=== PATIENT | male | born 1960 | race Caucasian/White ===

== ENCOUNTER 2018-08-13 05:42 | Inpatient (IN) | payer OTHER ==
--- NOTE | 2018-07-31 17:31 | GHP ---
[f rep st] PREOP HISTORY AND PHYSICAL He will be an a.m. admission for surgery on Monday, August 13, 2018. PROBLEM: Right hip severe degenerative arthritis. HISTORY OF PRESENT ILLNESS: The patient is a 57-year-old man admitted for a right hip [place] hip resurfacing arthroplasty. He has had intermittent problems for the past 5 years. He is now having daily pain and occasional night pain. Walking is painful. His activities are very limited. He is using ibuprofen. He has trouble putting on his shoes and socks on the right side. He has tried physical therapy, which is not helpful. He has had 2 cortisone injections, which provided brief benefit. He has also had some low back pain and SI joint problems. He has seen Dr. Fletcher at [facility] and Dr. Morgan Anderson in [place]. He is not a candidate for hip arthroscopy. He is admitted for a right hip [place] hip resurfacing arthroplasty. PAST MEDICAL HISTORY: He has been treated for skin cancer, which was not melanoma. No history of heart disease, stents, DVT, hepatitis, MRSA staph infections, sleep apnea, or bleeding problems. CURRENT MEDICATIONS: Advil. DRUG ALLERGIES: None. METAL ALLERGY: None. LATEX ALLERGY: None. SOCIAL HISTORY: The patient is . He does not smoke cigarettes and occasionally drinks alcohol. He works as chief of staff. FAMILY HISTORY: Positive for heart disease. PHYSICAL EXAMINATION: VITAL SIGNS: Height 6 feet 3 inches, weight 225 pounds, BMI 28.1. EYES: Conjunctivae and sclerae are clear. Pupils are round and reactive. MOUTH: Good oral hygiene. No loose teeth. CHEST: Clear. HEART: Regular rhythm. No murmurs. EXTREMITIES: Pertinent findings are limited to his right hip. He has full hip extension and 100 degrees of flexion. External rotation 30 degrees. Internal rotation 0 degrees. Abduction 30 degrees. He has well-developed thigh and buttocks musculature. IMAGING: His films show degenerative arthritis of his right hip. IMPRESSION ON ADMISSION: Right hip degenerative arthritis. He is prepared for a right total hip [place] hip resurfacing arthroplasty. The surgery has been described to him, including the risks, complications, expectations and recovery time. I have talked to him about the risk of femoral neck fracture, dislocation, infection and sciatic nerve injury. We have discussed, on 2 occasions, the issue of elevated metal ions in the blood and in the soft tissues around the hip joint. He understands that he is very young for any type of hip arthroplasty and may require revision surgery in his lifetime. All his questions have been answered and he consents to surgery. He does not have a primary care doctor. /[id number]/MODL MTDD
[~2018-08-13 05:42] MED LIST: TRANEXAMIC ACID 2,000 MG in NS 100 ML IV ONE
[2018-08-13] MEDS ORDERED: TRANEXAMIC ACID 3,000 MG in NS (SYRINGE) 50 ML IRR ONE (06:00)
[2018-08-13] MEDS ORDERED: TRANEXAMIC ACID 1,000 MG in NS 100 ML IV ONE (06:00)
[2018-08-13] MEDS ORDERED: POVIDONE-IODINE 20 ML in SODIUM CL IRRIG SOLUTION 500 ML IRR ONE (06:00)
[2018-08-13] MEDS ORDERED: ROPIVACAINE 0.2% 80 MG, EPINEPHrine 0.2 MG, KETOROLAC TROMETHAMINE 30 MG in SYRINGE 0 ML IU ONE (06:00)
[2018-08-13] MEDS ORDERED: ceFAZolin 2 GM/DEXTROSE 100 ML IV ONE (06:06)
[2018-08-13] MEDS ORDERED: GABAPENTIN 300 MG CAP PO ONE (06:06)
[2018-08-13] MEDS ORDERED: ONDANSETRON 4 MG/2 ML VIAL IVP ONE (06:06)
[2018-08-13] MEDS ORDERED: DEXAMETHASONE 4 MG/ML VIAL IVP ONE (06:06)
[2018-08-13] MEDS ORDERED: ACETAMINOPHEN 325 MG TAB PO ONE (06:06)
[2018-08-13] MEDS ORDERED: FAMOTIDINE 20 MG TAB PO ONE (06:06)
[2018-08-13] MEDS ORDERED: LR 1,000 ML IV ONE (06:10)
[2018-08-13] MEDS ORDERED: TRANEXAMIC ACID 3,000 MG/50 ML BAG IRR ONE (06:45)
[2018-08-13] MEDS ORDERED: ceFAZolin 1 GM/5 ML SYR ONE (06:45)
[2018-08-13] MEDS ORDERED: MIDAZOLAM 2 MG/2 ML VIAL IVP ONE (06:50)
[2018-08-13] MEDS ORDERED: fentaNYL 100 MCG/2 ML INJ IVP PRN (06:51)
[2018-08-13] MEDS ORDERED: ONDANSETRON 4 MG/2 ML VIAL IVP PRN ×2 (06:51→09:32)
[2018-08-13] MEDS ORDERED: NALOXONE HCL 0.4 MG/ML INJ IVP PRN (06:51)
[2018-08-13] MEDS ORDERED: PROMETHAZINE HCL 25 MG/ML INJ IVP PRN ×2 (06:51→09:32)
[2018-08-13] MEDS ORDERED: ALBUTEROL 3 ML DEYVIAL IH PRN (06:51)
[2018-08-13] MEDS ORDERED: HYDROmorphONE/DILAUDID 2 MG/ML INJ IVP PRN (06:51)
[2018-08-13] MEDS ORDERED: NS 500 ML IV PRN ×2 (06:51→09:32)
--- NOTE | 2018-08-13 06:51 | PDANEPAE ---
ANE History of Present Illness here for R hip re-surfacing ANE Past Medical History - Cardiovascular History Hx Hypertension: No Hx Arrhythmias: No Hx Chest Pain: No Hx Coronary Artery / Peripheral Vascular Disease: No Hx CHF / Valvular Disease: No Hx Palpitations: No Cardiovascular History Comment: MILD MURMUR IN PAST - Pulmonary History Hx COPD: No Hx Asthma/Reactive Airway Disease: No Hx Recent Upper Respiratory Infection: No Hx Oxygen in Use at Home: No Hx Sleep Apnea: No Sleep Apnea Screening Result - Last Documented: Negative - Neurologic History Hx Cerebrovascular Accident: No Hx Seizures: No Hx Dementia: No Neurologic History Comment: OCCAS HEADACHES - Endocrine History Hx Diabetes: No - Renal History Hx Renal Disorders: No - Liver History Hx Hepatic Disorders: No - Neurological & Psychiatric Hx Hx Neurological and Psychiatric Disorders: No - Cancer History Hx Cancer: Yes Cancer History Comment: BASAL & SQUAMOUS CELL REMOVED - Congenital Disorder History Hx Congenital Disorders: No - GI History Hx Gastrointestinal Disorders: No - Other Health History Other Health History: DRY SKIN - Chronic Pain History Chronic Pain: Yes (R HIP & LOW BACK) - Surgical History Prior Surgeries: SKIN CA REMOVED. KNEE SCOPE R. HERNIA. TONSILLECTOMY ANE Review of Systems Review of Systems: - Exercise capacity Exercise capacity: >=4 METS METS (RN): 4 METS ANE Patient History - Allergies Allergies/Adverse Reactions: No Known Allergies Allergy (Unverified 07/30/18 11:13) - Home Medications Home medications: home medication list seen and reviewed Home Medications: Advil 07/30/18 [Last Taken 1 Week Ago ~08/06/18] Excedrin Tablet (*) 07/30/18 [Last Taken 1 Week Ago ~08/06/18] Tylenol 08/13/18 [Last Taken 08/09/18] - NPO status NPO Status: no food or drink >8 hours NPO Since - Liquids (Date): 08/13/18 NPO Since - Liquids (Time): 02:00 NPO Since - Solids (Date): 08/12/18 NPO Since - Solids (Time): 21:00 - Anes Hx Anes Hx: no prior problems - Smoking Hx Smoking Status: Never smoked ANE Labs/Vital Signs - Vital Signs Vital Signs: reviewed preoperatively; see RN documention for details Blood Pressure: 137/100 Heart Rate: 68 Respiratory Rate: 18 O2 Sat (%): 94 Height: 190.5 cm Weight: 102.058 kg ANE Physical Exam - Airway Neck exam: FROM Mallampati Score: Class 1 - Pulmonary Pulmonary: no respiratory distress - Cardiovascular Cardiovascular: regular rate and rhythym - ASA Status ASA Status: II ANE Anesthesia Plan Anesthesia Plan: MAC, spinal
[2018-08-13] MEDS ORDERED: MIDAZOLAM 2 MG/2 ML VIAL ONE (06:54)
[2018-08-13] MEDS ORDERED: BUPIVACAINE 0.5% 30 ML SDV ONE (06:54)
[2018-08-13] MEDS ORDERED: PROPOFOL/EMULSION 500 MG/50 ML BOTTLE IV ONE ×3 (07:00→08:31)
[2018-08-13] MEDS ORDERED: fentaNYL 100 MCG/2 ML INJ ONE (07:02)
--- NOTE | 2018-08-13 07:03 | PDHPUP ---
History & Physical Update H&P update statement: This history and physical update is based on an assessment of the patient which was completed after admission or registration (within 24 hours), but prior to the surgery/procedure. H&P update: H&P reviewed & patient examined
[2018-08-13] MEDS ORDERED: PHENYLEPHRINE HCL 100 MCG/ML SYR ONE (08:04)
[2018-08-13] MEDS ORDERED: ePHEDrine SULFATE 25 MG/5 ML SYR ONE (08:17)
--- NOTE | 2018-08-13 09:24 | POSTOPPROG ---
Post Op Note Date of Operation: 08/13/18 Surgeon: Richard Sebastian Foreign Language Interpreter: Zenon Anesthesiologist: Dr. Tom Siu Anesthesia: IV Sedation, Spinal Post-op Diagnosis: Right hip severe degenerative arthritis. Procedure: Right hip [place] hip resurfacing arthroplasty. Inf/Abcess present in the surg proc area at time of surgery?: No EBL: 100-500
[2018-08-13] MEDS ORDERED: MAGNESIUM HYDROXIDE 30 ML UDCUP PO PRN (09:32)
[2018-08-13] MEDS ORDERED: CYCLOBENZAPRINE 10 MG TAB PO PRN (09:32)
[2018-08-13] MEDS ORDERED: DIPHENOXYLATE/ATROPINE LOMOTIL 1 TAB PO PRN (09:32)
[2018-08-13] MEDS ORDERED: POLYETHYLENE GLYCOL 3350 17 GM PKT PO PRN (09:32)
[2018-08-13] MEDS ORDERED: oxyCODONE IR 5 MG TAB PO PRN (09:32)
[2018-08-13] MEDS ORDERED: LACTULOSE 20 GM/30 ML UDCUP PO PRN (09:32)
[2018-08-13] MEDS ORDERED: PROMETHAZINE HCL 25 MG SUPPR PR PRN (09:32)
[2018-08-13] MEDS ORDERED: BISACODYL 10 MG SUPP PR PRN (09:32)
[2018-08-13] MEDS ORDERED: traMADol 50 MG TAB PO PRN (09:32)
[2018-08-13] MEDS ORDERED: TEMAZEPAM 15 MG CAP PO PRN (09:32)
[2018-08-13] MEDS ORDERED: METOCLOPRAMIDE 10 MG/2 ML VIAL IVP PRN (09:32)
[2018-08-13] MEDS ORDERED: ONDANSETRON DISINTEGRATING 4 MG TAB PO PRN (09:32)
[2018-08-13] MEDS ORDERED: diphenhydrAMINE 25 MG CAP PO PRN (09:32)
[2018-08-13] MEDS ORDERED: LR 1,000 ML IV SCH (10:00)
--- NOTE | 2018-08-13 10:09 | GOP ---
[f rep st] OPERATIVE REPORT DATE OF OPERATION: 08/13/2018 SURGEON: Richard Sebastian MD PILE OPERATOR: Sebastian Irizarry CFA and Ruperto Head PAC. ANESTHESIA: A combination of Marcaine, spinal, and IV sedation. ANESTHESIOLOGIST: Dr. Tom Siu. PREOPERATIVE DIAGNOSIS: Right hip severe degenerative arthritis. POSTOPERATIVE DIAGNOSIS: Right hip severe degenerative arthritis. PROCEDURE PERFORMED: 08/13/2018 a right hip [place] hip resurfacing arthroplasty. FINDINGS: DESCRIPTION OF PROCEDURE: The patient was given 2 g of IV Ancef preoperatively within 60 minutes of surgery. He also received 1000 mg of IV tranexamic acid. He was placed on the operating room table and given spinal anesthesia with Marcaine by Dr. Siu. He was then placed supine and given IV corazon tion. A Rosario catheter was not used. He wore a compressive stocking and SCD on the nonoperative leg . He was rolled to the left lateral decubitus position. An axillary roll was used, and all pressure points were carefully padded. The position was secured with the pegboard table attachment. I was c areful to lock the pelvis in a vertical position. His perineum was isolated with plastic adhesive dr bond. His right hip and right lower extremity were prepped with ChloraPrep. They were draped free u sing sterile sheets, stockinette, and Ioban plastic drape. He was a large, muscular man and made pos itioning a bit difficult. The [employer] time-out was performed to verify the correct patient identity and the c orrect surgical side and site. The [place] time-out was also performed. I made a 7 inch straight oblique posterolateral hip skin incision. The subcutaneous tissues were sha rply divided, and hemostasis was obtained using electrocautery. The fascia trae was identified and s plit along the axis of its fibers. I curved posteriorly and proximally, and split the fascia of the gluteus moncho and bluntly split the muscle fibers in line with their orientation. His sciatic nerv e was identified and protected throughout the procedure. The Charnley self-retaining retractor was i nserted. The external rotators and the posterior hip capsule were divided as separate layers at the base of the femoral neck, tagged, and reflected posteriorly. His gluteus moncho tendon was divided and tagged in order to improve exposure and release tension on the sciatic nerve. His hip was disloc ated posteriorly. I used a sizing gauge to check the diameter of the neck and concluded that 52 mm w as the proper head size. I performed a circumferential capsulotomy. I was able to retract the femor al head anteriorly and superiorly, and hold it out of place with appropriate retractors. He had very muscular buttocks and it made the exposure difficult. The remnant of his labrum was excised. His l abrum was pretty much osteophyed. He had a large circumferential osteophyte around his acetabulum. His acetabulum was reamed sequentially up to 58 mm. I selected the Stevan monoblock porous-coate d acetabular component with an outside diameter of 58 mm. This was firmly impacted and was a very ti ght fit. I was careful to determine proper inclination and anteversion. I used the remnant of the t ransverse acetabular ligament and other acetabular bony landmarks to help me determine proper cup luiza entation. Large periacetabular osteophytes were removed with an osteotome and rongeur. I was carefu l to leave a good lip of bone and capsule extending beyond the anterior-inferior lip of the metal cup . I then returned to preparation of the femoral head. Using appropriate jigs and guides, I inserted a guide pin into the femoral head and neck. I was careful to position it in such a way that there woul d be no notching of the neck. The large sterile metal goniometer was used to check the neck shaft an gle. I reamed over the guide pin and inserted the reaming guide. I then used the cylindrical reamer down to the head and neck junction. This was followed by the flat reamer and the chamfer reamer. T lizzie head was sized for 52 mm. There was no impingement or damage to the neck. He had some small ante rior neck osteophytes, which I removed with a rongeur. I drilled a small hole in the lesser trochant er and inserted a suction cannula to create negative pressure in the medullary canal. Small holes we re drilled on the flattened chamfer surfaces of the prepared head for cement anchors. The head was t horoughly cleaned with the pulsating lavage and carefully dried. I used a CarboJet device to blow dr y the cancellous surfaces. A single batch of Simplex cement with tobramycin was mixed. At about 50 seconds, I poured the liquid cement into the head component, inserted it onto the femoral head and im pacted it into place. Excess cement was removed before it hardened. The acetabulum was irrigated and cleaned and inspected, and the hip was reduced. Stability and range of motion were checked. I placed my finger along the anterior aspect of the acetabular component an d flexed the hip to 110 degrees. There was no anterior impingement. The suction cannula on the less er trochanter was removed. The wound was thoroughly irrigated with a dilute Betadine solution. 40 c c of the joint anesthetic cocktail were injected into the capsule, the deep musculature, and the subc utaneous tissues along the skin edges. 50 cc of tranexamic acid solution was irrigated into the join t. His sciatic nerve was reinspected and looked unharmed. The external rotators and the posterior capsu le were repaired in separate layers with two #2 FiberWire sutures through drill holes in the greater trochanter. The gluteus moncho tendon was repaired with two [id number] #2 FiberWire sutures. The fascia was repaired first with 2 interrupted [id number] #2 FiberWire sutures followed by a r unning #2 barbed Ethicon Stratafix PDO suture. The subcutaneous tissues were closed with a running 0 barbed Ethicon Stratafix Monoderm suture. The skin was closed with a running 3-0 barbed Ethicon Str atafix Monoderm subcuticular suture. The skin edges were reapproximated and sealed with Dermabond gl ue. The wound was covered with a large sterile Mepilex waterproof dressing. The sacral Mepilex dres sing was also applied. The estimated blood loss was about 500 mL. I used a [employer] Ste[place] hip resurfacing system. The acetabular component was 58 mm in d iameter and press-fit. The femoral head was 52 mm and cemented. A long leg compressive stocking and SCD were applied to the operative leg. An abduction pillow was placed between his knees. He was aw akened from anesthesia and rolled to the supine position on his [facility]. He was taken to PAC U in satisfactory condition. There were no recognized intraoperative complications. The sponge and needle count were correct on 2 occasions. Sebastian Irizarry and Lucien Head acted as surgical assistants. Their assistance was a medical necess ity for safe completion of the procedure. The patient does not have a primary care doctor. /[id number]/MODL
--- NOTE | 2018-08-13 12:56 | POSTANESTH ---
Post Anesthetic Evaluation Cardiovascular Status: Normal, Stable Respiratory Status: Normal, Stable Level of Consciousness/Mental Status: Can Participate in Eval Pain Control: Adequate, Prn Tx Ordered Nausea/Vomiting Control: Adequate, Prn Tx Ordered Complications Possibly Related to Anesthesia: None Noted
[2018-08-13] MEDS ORDERED: ceFAZolin 2 GM/DEXTROSE 100 ML IV SCH (14:00)
[2018-08-13] MEDS: ACETAMINOPHEN 325 MG TAB PO SCH ×3 (17:10→23:35)
[2018-08-13] MEDS: KETOROLAC 15 MG/1 ML SDV IVP SCH ×3 (18:04→23:34)
[2018-08-13] MEDS: SENNOSIDES/DOCUSATE SODIUM TAB PO SCH (20:42)
[2018-08-13] MEDS: ASPIRIN 325 MG TAB PO SCH (20:42)
[2018-08-13] MEDS: FAMOTIDINE 20 MG TAB PO SCH (20:42)
[2018-08-14] MEDS ORDERED: ceFAZolin 2 GM/DEXTROSE 100 ML IV SCH (01:00)
[2018-08-14] MEDS: ACETAMINOPHEN 325 MG TAB PO SCH (05:39)
[2018-08-14] MEDS: KETOROLAC 15 MG/1 ML SDV IVP SCH (05:39)
[2018-08-14 07:17] VITALS: BP 126/71
--- NOTE | 2018-08-14 07:26 | SOAPPROG ---
SOAP Progress Note Assessment/Plan: Assessment: Afebrile. Mild pain. Had syncopal episode in PACU and had to be admitted overnight. Voiding. Sciatic nerve intact. Films look good. Plan: Up with PT today. DC later today. 08/14/18 07:24 Objective: Vital Signs Temp Pulse Resp BP Pulse Ox 37.0 C 75 16 126/71 H 93 08/14/18 07:15 08/14/18 07:15 08/14/18 07:15 08/14/18 07:15 08/14/18 07:15 Laboratory Results 08/14/18 04:50 08/13/18 08/14/18 08/15/18 05:59 05:59 05:59 Intake Total 1915 Output Total 500 Balance 1415 ICD10 Worksheet Patient Problems: Problems Problem Status Onset Osteoarthritis of right hip Acute
--- NOTE | 2018-08-14 07:43 | GDS ---
[f rep st] DISCHARGE SUMMARY ADMISSION DIAGNOSIS: Right hip severe degenerative arthritis. DISCHARGE DIAGNOSIS: Right hip severe degenerative arthritis. OPERATION PERFORMED: 08/13/2018, a right hip [place] hip resurfacing arthroplasty. POSTOPERATIVE COMPLICATIONS: None. CONDITION ON DISCHARGE: Improved. DESCRIPTION OF HOSPITAL COURSE: The patient was admitted to the hospital on the morning of surgery. His admission CBC was normal. The same day, under a combination of Marcaine, spinal and IV sedation , he underwent a right hip [place] hip resurfacing arthroplasty. Originally he was scheduled to b e an outpatient. However, he made slow recovery in PACU and he had a syncopal episode. This require d overnight hospitalization. He was able to void spontaneously. There were no other postoperative c omplications. He was seen by Physical Therapy on the first postoperative day, and subsequently disch arged. DISPOSITION: The patient discharged to his home. He may progress to full weightbearing as tolerated . Use an abduction pillow in bed for 3 weeks. Use T.E.D. stockings for 1 week. He has prescription s for oxycodone, tramadol and Celebrex for pain control. Continue aspirin 325 mg p.o. daily for 21 d ays. He is going to go to Outpatient Physical Therapy. I will see him back in the office on . If there any problems, he is to call me at the office. The patient does not have a primary care doctor. /[id number]/MODL
[2018-08-14] MEDS ORDERED: FERROUS SULFATE 325 MG TAB PO SCH (08:00)
[2018-08-14] MEDS: ASPIRIN 325 MG TAB PO SCH (08:55)
[2018-08-14] MEDS: SENNOSIDES/DOCUSATE SODIUM TAB PO SCH (08:56)
[2018-08-14] MEDS: FAMOTIDINE 20 MG TAB PO SCH (08:56)
== END 2018-08-14 11:02 | disposition home or self-care (01) | DRG 470 ==
LOC: FSGY 05:42 → F3E 16:49 → OBSVTOIN 16:50 → F3E 18:22
PROVIDERS: ADMIT Orthopaedic Surgery; ATTEND Orthopaedic Surgery
PROC: 0SU90BZ Supplement Right Hip Joint with Resurfacing Device, Open Approach (ICD-10-PCS; principal; 2018-08-13 07:15)
DX: M16.11 Unilateral primary osteoarthritis, right hip (principal); R55 Syncope and collapse; Z85.828 Personal history of other malignant neoplasm of skin
CPT/HCPCS: 97161-GP; 97165-GO; 97535-GO; C1713; J0171; J0690; J1100; J1885; J2250; J2370; J2405; J2704; J2795; J3010